=== PATIENT | female | born 1990 | race Caucasian/White ===

== ENCOUNTER 2017-12-25 20:02 | Inpatient (IN) | payer OTHER ==
[2017-12-25 22:17] LABS: RUPTURE FETAL MEMBRANES POSITIVE (NEGATIVE)
[2017-12-26] MEDS ORDERED: MISOPROSTOL 200 MCG TAB PR ×2 (00:30→18:00)
[2017-12-26] MEDS ORDERED: OXYTOCIN 30 UNITS/LR 500 ML IV ×3 (00:30→18:00)
[2017-12-26] MEDS ORDERED: METHYLERGONOVINE 0.2 MG INJ IM ×2 (00:30→18:00)
[2017-12-26] MEDS ORDERED: CARBOPROST 250 MCG INJ IM ×2 (00:30→18:00)
[2017-12-26 00:55] LABS: ADD MAN DIFF? NO
[2017-12-26] MEDS: LACTATED RINGER'S 1,000 ML IV ×4 (00:56→17:56)
[2017-12-26 00:57] LABS: WHITE BLOOD COUNT 11.9 10^3/ul (4.8-10.8)
[2017-12-26] MEDS: BETAMET NA PHOS/AC(6 MG/ML) 5ML INJ IM ×2 (00:57→12:36)
[2017-12-26] MEDS: AMPICILLIN 2 GM/NS (PMX) 100 ML IV (00:57)
[2017-12-26 00:58] LABS: BASOPHILS % 0.3 % (0.0-2.0); EOSINOPHILS # 0.1 10^3/ul (0.0-0.5); EOSINOPHILS % 1.2 % (0.0-7.0); HEMATOCRIT 31.7 % (37.0-47.0); HEMOGLOBIN 10.9 g/dl (12.0-16.0); LYMPHOCYTES # 2.2 10^3/ul (0.8-2.9); LYMPHOCYTES % 18.3 % (15.0-51.0); MEAN CORPUSCULAR HEMOGLOBIN 34.3 pg (29.0-33.0); MEAN CORPUSCULAR HGB CONC 34.4 g/dl (32.0-37.0); MEAN CORPUSCULAR VOLUME 99.7 fl (82.0-101.0); MEAN PLATELET VOLUME 10.2 fl (7.4-10.4); MONOCYTE # 0.7 10^3/ul (0.3-0.9); MONOCYTES % 5.7 % (0.0-11.0); NEUTROPHIL # 8.7 10^3/ul (1.6-7.5); NEUTROPHILS % 72.7 % (39.0-77.0); PLATELET COUNT 173 10^3/UL (140-415); RED BLOOD COUNT 3.18 10^6/ul (4.20-5.40); RED CELL DISTRIBUTION WIDTH 13.3 % (11.5-14.5)
[2017-12-26 01:47] LABS: PT RATIO 1.1
[2017-12-26 01:48] LABS: PARTIAL THROMBOPLASTIN TIME 32.5 Sec (25.0-35.0)
[2017-12-26 01:56] LABS: HEPATITIS B SURFACE ANTIGEN NEGATIVE (NEGATIVE)
[2017-12-26 02:06] LABS: HIV 1&2 ANTIBODY NEGATIVE (NEGATIVE)
[2017-12-26 03:08] LABS: INR 1.04; PROTIME 13.8 Sec (11.9-14.9)
[2017-12-26] MEDS: AMPICILLIN 1 GM/NS (PMX) 50 ML IV ×5 (06:24→20:30)
[2017-12-26] MEDS ORDERED: OXYTOCIN 30 UNITS/LR 500 ML BAG IV (07:00)
[2017-12-26] MEDS: CITRIC ACID/SODIUM CITRATE 15 ML CUP PO (14:00)
[2017-12-26] MEDS: ONDANSETRON 4 MG INJ IV (14:00)
[2017-12-26] MEDS ORDERED: ONDANSETRON 4 MG INJ ×2 (15:02→15:58)
[2017-12-26] MEDS ORDERED: CITRIC ACID/SODIUM CITRATE 15 ML CUP (15:02)
[2017-12-26 15:16] LABS: RAPID PLASMA REAGIN NONREACTIVE (NR)
[2017-12-26] MEDS ORDERED: morphine SULFATE/PF (10 MG/10 ML) INJ (15:58)
[2017-12-26] MEDS ORDERED: PHENYLephrine (100 MCG/ML) 5ML SYG (15:58)
[2017-12-26] MEDS ORDERED: OXYTOCIN 10 UNIT INJ (15:58)
[2017-12-26] MEDS ORDERED: DEXAMETHASONE 4 MG/ML 1 ML INJ (15:58)
[2017-12-26] MEDS ORDERED: METOCLOPRAMIDE 10 MG INJ (15:58)
[2017-12-26] MEDS ORDERED: KETOROLAC 30 MG INJ (15:58)
[2017-12-26] MEDS: CEFAZOLIN 2 GM/50 ML (PMX) 50 ML IVPB (16:07)
[2017-12-26] MEDS ORDERED: morphine 2 MG INJ IV ×2 (16:30)
[2017-12-26] MEDS ORDERED: ACETAMINOPHEN 500 MG TAB PO (16:30)
[2017-12-26] MEDS ORDERED: HYDROmorphONE 0.5 MG/0.5 ML SYG IV ×2 (16:30)
[2017-12-26] MEDS ORDERED: ONDANSETRON 4 MG INJ IV ×2 (16:30→18:00)
[2017-12-26] MEDS ORDERED: NALOXONE (0.4 MG/ML) INJ IV (16:30)
[2017-12-26] MEDS ORDERED: NALBUPHINE HCL (10 MG/1 ML) INJ IV (16:30)
[2017-12-26] MEDS: OXYTOCIN 30 UNITS/LR 500 ML IV ×2 (17:36→20:59)
[2017-12-26] MEDS ORDERED: MAGNESIUM HYDROXIDE 30ML CUP PO (18:00)
[2017-12-26] MEDS ORDERED: BISACODYL 10 MG SUPP PR (18:00)
[2017-12-26] MEDS ORDERED: ACETAMINOPHEN 325 MG TAB PO (18:00)
[2017-12-26] MEDS ORDERED: OXYCODONE/ACETAMINOPHEN (5/325) TAB PO (18:00)
[2017-12-26] MEDS: CEFAZOLIN 1 GM/50 ML (PMX) 50 ML IV (18:00)
[2017-12-26] MEDS ORDERED: SENNA/DOCUSATE NA (8.6MG/50MG) TAB PO (18:00)
[2017-12-26] MEDS: DIPHENHYDRAMINE 50 MG INJ IV (18:57)
[2017-12-26] MEDS: CEFAZOLIN 1 GM/50 ML (PMX) 50 ML IVPB (23:53)
[2017-12-27] MEDS: LACTATED RINGER'S 1,000 ML IV ×6 (00:01→20:46)
[2017-12-27] MEDS: KETOROLAC 30 MG INJ IV ×2 (04:53→12:25)
[2017-12-27] MEDS: LANOLIN 7 GM TUBE TOP (04:55)
[2017-12-27 07:01] LABS: ADD MAN DIFF? NO
[2017-12-27 07:03] LABS: WHITE BLOOD COUNT 20.8 10^3/ul (4.8-10.8)
[2017-12-27 07:03] LABS: BASOPHILS % 0.1 % (0.0-2.0); HEMATOCRIT 27.8 % (37.0-47.0); HEMOGLOBIN 9.4 g/dl (12.0-16.0); LYMPHOCYTES # 1.4 10^3/ul (0.8-2.9); LYMPHOCYTES % 6.7 % (15.0-51.0); MEAN CORPUSCULAR HEMOGLOBIN 34.4 pg (29.0-33.0); MEAN CORPUSCULAR HGB CONC 33.8 g/dl (32.0-37.0); MEAN CORPUSCULAR VOLUME 101.8 fl (82.0-101.0); MEAN PLATELET VOLUME 10.9 fl (7.4-10.4); MONOCYTE # 1.2 10^3/ul (0.3-0.9); MONOCYTES % 5.6 % (0.0-11.0); NEUTROPHIL # 17.9 10^3/ul (1.6-7.5); NEUTROPHILS % 86.2 % (39.0-77.0); PLATELET COUNT 146 10^3/UL (140-415); RED BLOOD COUNT 2.73 10^6/ul (4.20-5.40); RED CELL DISTRIBUTION WIDTH 13.6 % (11.5-14.5)
[2017-12-27 07:47] LABS: ALANINE AMINOTRANSFERASE 27 IU/L (13-69); ALBUMIN 2.5 g/dl (3.3-4.9); ALKALINE PHOSPHATASE 103 IU/L (42-121); ANION GAP 9 (8-16); ASPARTATE AMINO TRANSFERASE 28 IU/L (15-46); BILIRUBIN,INDIRECT 0.6 mg/dl (0-1.1); BILIRUBIN,TOTAL 0.6 mg/dl (0.2-1.3); BLOOD UREA NITROGEN 11 mg/dl (7-20); CARBON DIOXIDE 24 mmol/L (21-31); CHLORIDE 103 mmol/L (97-110); CREATININE 0.52 mg/dl (0.44-1.00); GLUCOSE 97 mg/dl (70-220); SODIUM 132 mmol/L (135-144)
[2017-12-27] MEDS: CEFAZOLIN 1 GM/50 ML (PMX) 50 ML IVPB ×2 (08:15→15:28)
[2017-12-27 09:39] LABS: OPIATES Positive (NEGATIVE)
[2017-12-27 09:46] LABS: AMPHETAMINE/METHAMPHETAMINE Negative (NEGATIVE); BARBITURATES Negative (NEGATIVE); BENZODIAZEPINES Negative (NEGATIVE); CANNABINOIDS Negative (NEGATIVE); COCAINE Negative (NEGATIVE)
[2017-12-27] MEDS: OXYCODONE/ACETAMINOPHEN (5/325) TAB PO (16:53)
[2017-12-28] MEDS: LACTATED RINGER'S 1,000 ML IV ×2 (00:01→01:56)
[2017-12-28] MEDS: HYDROCODONE/APAP (5/325) TAB PO ×3 (02:07→17:57)
[2017-12-28] MEDS: INFLUENZA VIRUS VACCINE 0.5 ML (DISPENSING) IM* (09:00)
[2017-12-28] MEDS: IBUPROFEN 600 MG TAB PO ×2 (11:22→17:57)
[2017-12-28 11:45] LABS: ADD MAN DIFF? NO
[2017-12-28 11:51] LABS: BASOPHILS % 0.2 % (0.0-2.0); EOSINOPHILS % 0.1 % (0.0-7.0); HEMATOCRIT 29.3 % (37.0-47.0); HEMOGLOBIN 9.9 g/dl (12.0-16.0); LYMPHOCYTES # 1.7 10^3/ul (0.8-2.9); LYMPHOCYTES % 10.7 % (15.0-51.0); MEAN CORPUSCULAR HEMOGLOBIN 34.7 pg (29.0-33.0); MEAN CORPUSCULAR HGB CONC 33.8 g/dl (32.0-37.0); MEAN CORPUSCULAR VOLUME 102.8 fl (82.0-101.0); MEAN PLATELET VOLUME 10.9 fl (7.4-10.4); MONOCYTES % 6.1 % (0.0-11.0); NEUTROPHILS % 81.8 % (39.0-77.0); PLATELET COUNT 144 10^3/UL (140-415); RED BLOOD COUNT 2.85 10^6/ul (4.20-5.40); RED CELL DISTRIBUTION WIDTH 13.4 % (11.5-14.5)
[2017-12-28 11:51] LABS: WHITE BLOOD COUNT 15.9 10^3/ul (4.8-10.8)
[2017-12-29] MEDS: HYDROCODONE/APAP (5/325) TAB PO ×3 (02:56→20:20)
[2017-12-29] MEDS: IBUPROFEN 600 MG TAB PO ×3 (02:57→20:20)
[2017-12-29 09:15] LABS: ADD MAN DIFF? NO
[2017-12-29 09:18] LABS: WHITE BLOOD COUNT 13.5 10^3/ul (4.8-10.8)
[2017-12-29 09:18] LABS: BASOPHILS % 0.2 % (0.0-2.0); EOSINOPHILS # 0.1 10^3/ul (0.0-0.5); EOSINOPHILS % 0.8 % (0.0-7.0); HEMATOCRIT 29.3 % (37.0-47.0); HEMOGLOBIN 9.8 g/dl (12.0-16.0); LYMPHOCYTES # 1.8 10^3/ul (0.8-2.9); MEAN CORPUSCULAR HEMOGLOBIN 34.6 pg (29.0-33.0); MEAN CORPUSCULAR HGB CONC 33.4 g/dl (32.0-37.0); MEAN CORPUSCULAR VOLUME 103.5 fl (82.0-101.0); MONOCYTE # 0.7 10^3/ul (0.3-0.9); MONOCYTES % 5.3 % (0.0-11.0); NEUTROPHIL # 10.7 10^3/ul (1.6-7.5); NEUTROPHILS % 79.4 % (39.0-77.0); PLATELET COUNT 137 10^3/UL (140-415); RED BLOOD COUNT 2.83 10^6/ul (4.20-5.40); RED CELL DISTRIBUTION WIDTH 13.5 % (11.5-14.5)
[2017-12-29] MEDS: OXYTOCIN 30 UNITS/LR 500 ML IV ×2 (11:11→11:12)
[2017-12-29 12:03] LABS: RUBELLA ANTIBODY - IGG 1.44 index
[2017-12-29 12:47] LABS: RUBELLA ANTIBODY - IGM <20.00 AU/mL
[2017-12-30] MEDS: IBUPROFEN 600 MG TAB PO (05:40)
[2017-12-30] MEDS: HYDROCODONE/APAP (5/325) TAB PO (12:22)
== END 2017-12-30 14:35 | disposition home or self-care (01) | DRG 765 ==
LOC: OBT 20:02 → L-D 20:04 → PP1 12-26 21:33
PROVIDERS: Obstetrics & Gynecology
PROC: 10D00Z1 Extraction of Products of Conception, Low, Open Approach (ICD-10-PCS; principal; 2017-12-26)
PROC: 3E033VJ Introduction of Other Hormone into Peripheral Vein, Percutaneous Approach (ICD-10-PCS; 2017-12-26)
DX: O34.211 Maternal care for low transverse scar from previous cesarean delivery (principal); O60.14X0 Preterm labor third trimester with preterm delivery third trimester, not applicable or unspecified; Z37.0 Single live birth; Z3A.35 35 weeks gestation of pregnancy
CPT/HCPCS: 76815; 80053; 80307; 84112; 85025; 85610; 85730; 86592; 86703; 86762; 86850; 86900; 86901; 87340; 88307; 90686; 94760; 99464